=== PATIENT | female | born 1940 | race Asian ===

== ENCOUNTER 2018-09-28 14:37 | Inpatient (IN) | payer OTHER, MEDICAID ==
[~2018-09-28] VITALS: Ht 160 cm; Wt 74.4 kg
--- NOTE | 2018-09-28 14:37 | NUR ---
WILMAR UGALDE, CURRENTLY AWAITING BED
[2018-09-28 14:38] VITALS: BP 130/62
--- NOTE | 2018-09-28 14:47 | NUR ---
PT TAKEN TO BED 1 BY EMS CREW
[2018-09-28] MEDS ORDERED: NALO25TA PO (14:53)
[2018-09-28] MEDS ORDERED: TEMA15CA24 PO (14:53)
[2018-09-28] MEDS ORDERED: POTA10TE30 PO (14:53)
[2018-09-28] MEDS ORDERED: GABA400C PO (14:53)
[2018-09-28] MEDS ORDERED: CITA20TA15 PO (14:53)
[2018-09-28] MEDS ORDERED: LINA5TAB PO (14:53)
[2018-09-28] MEDS ORDERED: LORA10TA19 PO (14:53)
[2018-09-28] MEDS ORDERED: FURO-572 PO (14:53)
[2018-09-28] MEDS ORDERED: SPIR50TA PO (14:53)
[2018-09-28] MEDS ORDERED: ATEN50TA2 PO (14:53)
[2018-09-28] MEDS ORDERED: LACT1CAP92 PO (14:53)
[2018-09-28] MEDS ORDERED: ASCO500T93 PO (14:53)
[2018-09-28] MEDS ORDERED: LEVO0.0511 PO (14:53)
[2018-09-28] MEDS ORDERED: GLIM2TAB PO (14:53)
--- NOTE | 2018-09-28 14:55 | NUR ---
78 Y/O F BIBA W/C/O PER EMS FROM [facility] EXTENDED [facility] C/O GENERALIZED RASH AND PRURITUS >1 WK. SEEN BY DERM LAST WEEK BUT PT CONTINUES WITH RASH AND PRURITUS. DENIES N/V/D; AAOX4, PERRL; LUNGS CLEAR BL, BREATHING UNLABORED; HR EVEN AND REGULAR, BL PERIPHERAL PULSES PRESENT; PT STATES 0/10 PAIN AT THIS TIME; VSS; PATIENT POSITIONED FOR COMFORT; HOB ELEVATED; BEDRAILS UP X2; BED DOWN. HX--LIVER CA, HYPOTHYROID, DM, HTN, CHF, DEPRESSION RX---SEE LIST
--- NOTE | 2018-09-28 14:59 | NUR ---
DAUGHTER JAK CALLED AT THIS TIME PER PTS REQUEST.
[2018-09-28] MEDS ORDERED: cefTRIAXone 1,000 MG in DEXT 5% MINI-BAG PLUS 50 ML IV ONE (15:25)
[2018-09-28] MEDS ORDERED: NACL 0.9% 1,000 ML IV SCH (15:25)
--- NOTE | 2018-09-28 15:35 | NUR ---
PHLEB AT BEDSIDE.
[2018-09-28 15:55] LABS: BASOPHILS % (AUTO) 0.6 % (0.0-2.0); EOSINOPHILS # (AUTO) 0.1 K/uL (0-0.4); EOSINOPHILS % (AUTO) 2.4 % (0.0-4.0); HEMATOCRIT 31.2 % (36-48); HEMOGLOBIN 9.8 g/dL (12.0-16.0); LYMPHOCYTES # (AUTO) 0.8 K/uL (2.5-16.5); LYMPHOCYTES % (AUTO) 14.3 % (20.5-51.1); MEAN CORPUSCULAR HEMOGLOBIN 25 pg (27-31); MEAN CORPUSCULAR HGB CONC 31 g/dL (33-37); MONOCYTES # (AUTO) 0.5 K/uL (0.8-1.0); MONOCYTES % (AUTO) 9.3 % (1.7-9.3); NEUTROPHILS # (AUTO) 4.2 K/uL (1.8-7.7); NEUTROPHILS % (AUTO) 73.4 % (42.2-75.2); PLATELET COUNT (AUTO) 230 K/uL (140-450); RED BLOOD CELL COUNT(AUTO) 3.95 MIL/uL (4.20-5.40); RED CELL DISTRIBUTION WIDTH 17.9 % (11.6-13.7); WHITE BLOOD COUNT (AUTO) 5.6 K/uL (4.8-10.8)
[2018-09-28] MEDS ORDERED: cefTRIAXone 1,000 MG VIAL ONE ×2 (15:59→21:25)
[2018-09-28 16:04] LABS: ANION GAP 13.2 (8-16); CARBON DIOXIDE 28.1 mmol/L (21-32); CHLORIDE 97 mmol/L (98-107); CREATININE 1.3 mg/dL (0.6-1.3); GLUCOSE 154 mg/dL (74-106); POTASSIUM 5.3 mmol/L (3.5-5.1); SODIUM SERUM 133 mmol/L (136-145); UREA NITROGEN, BLOOD 22 mg/dL (7-18)
[2018-09-28 16:21] LABS: ALBUMIN 3.4 g/dL (3.4-5.0); ASPARTATE AMINOTRANSFERASE 55 U/L (15-37); TOTAL BILIRUBIN 0.5 mg/dL (0.0-1.0)
[2018-09-28] MEDS ORDERED: SODIUM POLYSTYRENE 15 GM/60 ML UDBTL PO ONE ×2 (17:15→17:45)
--- NOTE | 2018-09-28 17:30 | NUR ---
Lorraine lraa in ED - 09/28/18 at 1735 by MEDPJ CALLED PHARMACY FOR KAYEXALATE MEDICINE. PASCUAL SMITH MADE AWARE OF STATUS.
--- NOTE | 2018-09-28 17:30 | NUR ---
CALLED PHARMACY FOR KAYEXALATE MEDICINE. PHARMACY TO COME TO ER. ER MADE AWARE OF STATUS
--- NOTE | 2018-09-28 17:43 | NUR ---
PER PHARMACY THE ONLY KAYEXALATE THEY HAVE IS 15GM, DR. OLIVERA MADE AWARE STATED THAT [facility] OKAY TO GIVE.
[2018-09-28 17:51] LABS: APPEARANCE,URINE CLEAR (CLEAR); BILIRUBIN,URINE NEGATIVE (NEGATIVE); BLOOD, URINE NEGATIVE (NEGATIVE); COLOR,URINE YELLOW (YELLOW); LEUKOCYTE ESTERASE ,URINE TRACE (NEGATIVE); NITRITE, URINE NEGATIVE (NEGATIVE); UGLUCOSE NEGATIVE (NEGATIVE)
[2018-09-28] MEDS ORDERED: MORPHINE SULFATE 2 MG/ML SYR IVP PRN (17:55)
[2018-09-28] MEDS ORDERED: ONDANSETRON 4 MG/2 ML VIAL IM/IVP PRN (17:55)
[2018-09-28] MEDS ORDERED: DOCUSATE SODIUM 100 MG GELCAP PO PRN (17:55)
[2018-09-28] MEDS: NACL 0.9% 1,000 ML IV SCH (17:55)
[2018-09-28] MEDS ORDERED: ACETAMINOPHEN 325 MG TAB PO PRN (17:55)
--- NOTE | 2018-09-28 18:15 | NUR ---
PT TAKEN TO TELE FLOOR BY RN CHUN AND EMT JOE
--- NOTE | 2018-09-28 18:30 | NUR ---
Patient will be admitted to care of DR. GONZALEZ. Admited to TELE. Will go to room 112A. Belongings list completed. Report to TERRANCE LUCAS.
--- NOTE | 2018-09-28 18:30 | NUR ---
PATIENT ARRIVED FROM ER VIA GURNEY. TRANSPORTED SAFELY TO [facility] [[email or web address] BED. PATIENT IS STABLE. V/S STABLE. RASHES WITH SCABS NOTED THROUGHOUT BODY. IV SITE INTACT, PATENT, ON SALINE LOCK AT THIS TIME. DENIES ANY PAIN. ORIENTED PATIENT TO ROOM AND CALL LIGHT. SAFETY MEASURES IN PLACE, CALL LIGHT WITHIN REACH. WILL CONTINUE TO MONITOR.
[2018-09-28 19:28] LABS: CHOL/HDL RATIO 3.6 (1-4.5); MAGNESIUM 2.2 mg/dL (1.8-2.4); PHOSPHORUS 4.1 mg/dL (2.5-4.9); THYROID STIMULATING HORMONE 2.52 uIU/mL (0.34-3.74)
[2018-09-28 19:37] LABS: PROTHROMBIN TIME 10.8 secs (10.8-13.4)
--- NOTE | 2018-09-28 19:37 | NUR ---
GAVE REPORT TO PAINTING AND COATING WORKER NURSE FOR CONTINUITY OF CARE. PATIENT IN STABLE CONDITION.
--- NOTE | 2018-09-28 19:38 | NUR ---
RECEIVED BEDSIDE REPORT FROM DAY SHIFT RN. PT IS A&OX4. SPEAKS AMHARIC. UNDERSTANDS SOME ZAMBIAN. RASHES WITH SCABS NOTED THROUGHOUT BODY. IV SITE ON LEFT FA 24G INTACT, PATENT, IVF INFUSING PER ORDERS. DENIES ANY PAIN. ORIENTED PATIENT TO ROOM AND CALL LIGHT. SAFETY MEASURES IN PLACE, CALL LIGHT WITHIN REACH. WILL CONTINUE TO MONITOR.
[2018-09-28 20:00] VITALS: BP 123/49
[2018-09-28] MEDS ORDERED: DEXTROSE 50% 50 ML SYR IVP PRN (20:20)
[2018-09-28] MEDS: BLOOD GLUCOSE MONITORING 1 DEV DEV FS SCH (21:01)
[2018-09-28] MEDS: HYDROcodone/APAP 7.5/325 MG 1 TAB PO PRN (21:06)
[2018-09-28] MEDS ORDERED: CLINDAMYCIN 600 MG/4 ML VIAL ONE (21:25)
[2018-09-28] MEDS: CLINDAMYCIN 600 MG in DEXTROSE 5% 50 ML IV SCH (21:27)
--- NOTE | 2018-09-28 21:27 | NUR ---
VS ARE WITHIN NORMAL LIMITS. BLOOD SUGAR OF 140 NO COVERAGE NEEDED. CLINDAMYCIN INFUSING PER ORDERS. PICTURES TAKEN OF RASH. CALL LIGHT WITHIN REACH.
[2018-09-28] MEDS ORDERED: ATA25 PO (22:15)
[2018-09-28] MEDS ORDERED: MSCON30 PO (22:15)
[2018-09-28] MEDS ORDERED: CHOL100037 PO (22:15)
[2018-09-28] MEDS ORDERED: ACET-5636 PO (22:15)
[2018-09-28] MEDS: MORPHINE SULFATE 2 MG/ML SYR IVP PRN (22:22)
--- NOTE | 2018-09-28 22:23 | NUR ---
ROCEPHIN NOW INFUSING PER ORDERS. WILL CONTINUE TO MONITOR.
[2018-09-28 22:46] LABS: ANION GAP 13.4 (8-16); CARBON DIOXIDE 26.5 mmol/L (21-32); CHLORIDE 100 mmol/L (98-107); CREATININE 1.1 mg/dL (0.6-1.3); GLUCOSE 137 mg/dL (74-106); POTASSIUM 4.9 mmol/L (3.5-5.1); SODIUM SERUM 135 mmol/L (136-145); UREA NITROGEN, BLOOD 20 mg/dL (7-18)
[2018-09-29] VITALS: BP 95/51
--- NOTE | 2018-09-29 | NUR ---
VITAL SIGNS ARE WITHIN NORMAL LIMITS. ALL NEEDS MET AT THIS TIME. CALL LIGHT WITHIN REACH.
[2018-09-29] MEDS ORDERED: BISACODYL 10 MG SUPP RC PRN (01:25)
[2018-09-29] MEDS ORDERED: traZODone 50 MG TAB PO PRN (01:25)
[2018-09-29] MEDS ORDERED: MAGNESIUM HYDROXIDE 2400 MG/30 ML UDC PO PRN (01:25)
--- NOTE | 2018-09-29 02:50 | NUR ---
PT SLEEPING COMFORTABLY. NO S/S OF DISTRESS.
[2018-09-29 04:00] VITALS: BP 126/69
--- NOTE | 2018-09-29 04:00 | NUR ---
VITAL SIGNS ARE WITHIN NORMAL LIMITS. ALL NEEDS MET AT THIS TIME. WILL CONTINUE TO MONITOR.
[2018-09-29] MEDS ORDERED: CLINDAMYCIN 600 MG/4 ML VIAL ONE (04:35)
[2018-09-29] MEDS: CLINDAMYCIN 600 MG in DEXTROSE 5% 50 ML IV SCH (04:36)
--- NOTE | 2018-09-29 05:30 | NUR ---
BLOOD SUGAR OF 81. NO INSULIN NEEDED. PT WAS CLEANED AND TURNED FOR COMFORT. CALL LIGHT WITHIN REACH.
[2018-09-29] MEDS: BLOOD GLUCOSE MONITORING 1 DEV DEV FS SCH ×4 (05:46→21:55)
[2018-09-29 06:19] LABS: T4 (THYROXINE) 7.6 ug/dL (4.5-12.0)
--- NOTE | 2018-09-29 07:15 | NUR ---
ENDORSED TO DAY SHIFT RN. PT IS IN STABLE CONDITION.
--- NOTE | 2018-09-29 07:40 | NUR ---
PATIENT WAS AWAKE, ALERT. RESPIRATION EVEN, UNLABOR ON ROOM AIR. SKIN DRY AND WARM. IV PATENT AND INTACT. COMPLAINED OF LEFT LEG PAIN, WILL MEDICATE PER ORDER. PATIENT WAS ASSISTED TO BED MAZARIEGOS. PLAN OF CARE WAS DISCUSSED WITH PATIENT. BED AT LOW POSITION, SIDE RAILS UP. CALL LIGHT WITHIN REACH
[2018-09-29 08:00] VITALS: BP 148/80
--- NOTE | 2018-09-29 08:13 | NUR ---
PATIENT HAS BEEN SCREENED AND CATEGORIZED MODERATE NUTRITION RISK. PATIENT WILL BE SEEN WITHIN 3-5 DAYS OF ADMISSION. 10/01/18YEIMY [address] RD
[2018-09-29] MEDS: SODIUM FERRIC GLUCONATE 125 MG in NACL 0.9% 100 ML IV SCH (08:52)
[2018-09-29] MEDS: LACTOBACILLUS RHAMNOSUS GG 1 EACH CAP PO SCH (08:53)
[2018-09-29] MEDS: GABAPENTIN 100 MG CAP PO SCH ×2 (08:53→20:40)
[2018-09-29] MEDS: GLIMEPIRIDE 2 MG TAB PO SCH ×2 (08:54→20:39)
[2018-09-29] MEDS: FUROSEMIDE 20 MG TAB PO SCH (08:54)
[2018-09-29] MEDS: CITALOPRAM 20 MG TAB PO SCH (08:54)
[2018-09-29] MEDS: ASCORBIC ACID 500 MG TAB PO SCH ×2 (08:54→20:38)
[2018-09-29] MEDS: ATENOLOL 50 MG TAB PO SCH (08:54)
[2018-09-29] MEDS: LEVOTHYROXINE 0.05 MG TAB PO SCH (08:54)
[2018-09-29] MEDS: LORATADINE 10 MG TAB PO SCH (08:55)
[2018-09-29] MEDS: SPIRONOLACTONE 25 MG TAB PO SCH (08:55)
[2018-09-29] MEDS: MORPHINE SULFATE 2 MG/ML SYR IVP PRN ×2 (08:55→13:27)
[2018-09-29] MEDS ORDERED: NON-FORMULARY ITEM (Naloxegol Oxalate (Movantik) 25 MG) PO SCH (09:00)
[2018-09-29] MEDS ORDERED: NON-FORMULARY ITEM (Linagliptin (Tradjenta) 1 TAB) PO SCH (09:00)
[2018-09-29] MEDS ORDERED: VITAMIN D 400 IU TAB PO SCH (09:00)
--- NOTE | 2018-09-29 09:30 | NUR ---
PATIENT WAS AWAKE, ALERT. RESPIRATION EVEN, UNLABOR ON ROOM AIR. MEDS WERE GIVEN PER ORDERED. FAMILY WAS AT BEDSIDE. CALL LIGHT WITHIN REACH
[2018-09-29] MEDS: HYDROcodone/APAP 7.5/325 MG 1 TAB PO PRN ×2 (11:29→20:39)
--- NOTE | 2018-09-29 12:15 | NUR ---
PATIENT WAS AWAKE, ALERT. COMPLAINED OF LEG PAINS 6/10, MEDS WERE GIVEN PER ORDER. FAMILY WAS AT BEDSIDE. CALL LIGHT WITHIN REACH
[2018-09-29] MEDS ORDERED: CLINDAMYCIN PHOS 600MG/D5W PM 50 ML IV SCH (13:00)
--- NOTE | 2018-09-29 13:30 | NUR ---
PATIENT COMPLAINED OF LEG PAIN 10/10, MED WAS GIVEN PER ORDER. PATIENT WAS ASSISTED TO USE BED MAZARIEGOS. NO DISTRESS NOTED AT THIS TIME. CALL LIGHT WITHIN REACH
--- NOTE | 2018-09-29 13:37 | NUR ---
Software Engineer Developer Note: Per Kristi from [facility] , patient is on a 7 day bed hold and her daughter Debby Gil is her health care decision maker. Kristi stated patient does not have an existing Advance Directive. Per Kristi, patient was admitted at their facility on August 2018. I called and spoke with Debby Jeffery , she reported she would like patient to return to [facility] upon discharge.
--- NOTE | 2018-09-29 14:02 | NUR ---
PATIENT WAS ASSISTED TO SIT IN THE CHAIR. NO DISTRESS NOTED AT THIS TIME
[2018-09-29 16:00] VITALS: BP 127/64
--- NOTE | 2018-09-29 16:10 | NUR ---
PATIENT WAS AWAKE, ALERT. RESPIRATION EVEN, UNLABOR ON ROOM AIR. NO DISTRESS NOTED AT THIS TIME. CALL LIGHT WITHIN REACH
[2018-09-29] MEDS: diphenhydrAMINE 2% 30 GM TUBE TP SCH ×2 (17:00→17:08)
[2018-09-29] MEDS: HYDROmorphone 1 MG/ML AMP IVP PRN (17:08)
[2018-09-29] MEDS: INSULIN LISPRO SLIDING SCALE 100 UNITS/ML VIAL SUBQ PRN (17:18)
--- NOTE | 2018-09-29 17:30 | NUR ---
PATIENT COMPLAINED OF CONSTIPATION, MED WAS GIVEN PER ORDER
[2018-09-29] MEDS: NACL 0.9% 1,000 ML IV SCH (17:55)
--- NOTE | 2018-09-29 18:39 | NUR ---
PATIENT WAS RESTING COMFORTABLY. RESPIRATION EVEN, UNLABOR ON ROOM AIR. IV PATENT AND INTACT. NO DISTRESS NOTED AT THIS TIME
--- NOTE | 2018-09-29 19:35 | NUR ---
ENDORSEMENT GIVEN TO EVENT COORDINATOR MARKETING AND SALES NURSE. PATIENT IS STABLE AT THIS TIME
--- NOTE | 2018-09-29 19:36 | NUR ---
RECD. RESTING IN BED, AWAKE, A/OX4. RESPIRATION EVEN AN UNLABORED. IV OF NS AT 10 ML/HR INFUSING, RIGHT HAND G22. NOTED RASHES ON BILATERAL UPPER EXTREMITIES AND BACK AND REDNESS ON BILATERAL GROINS AND LOWER EXTREMITIES. PAIN IN THE THIGHS, 10/11. REPOSITIONED IN BED FOR COMFORT. WILL MEDICATE ORDERED. SAFETY MEASURES ENFORCED. DAUGHTER AT THE BEDSIDE. PLAN OF CARE FOR THE SHIFT DISCUSSED. VERBALIZED UNDERSTANDING.
--- NOTE | 2018-09-29 20:00 | NUR ---
Patient's Plan of Care was discussed and reviewed with COMMISSION SALES ASSOCIATE: ELZBIETA MOON
[2018-09-29] MEDS: hydrOXYzine HCL 25 MG TAB PO SCH (20:40)
--- NOTE | 2018-09-29 20:40 | NUR ---
DUE PO MEDICATIONS GIVEN, DAUGHTER AT THE BEDSIDE.
--- NOTE | 2018-09-29 21:00 | NUR ---
REFUSED SNACK FOR THE NIGHT, PREFERS FRUIT BROUGHT BY DAUGHTER.
--- NOTE | 2018-09-29 22:00 | NUR ---
ASSISTED TWICE TO GO TO BSC TO VOID, GAIT UNSTEADY. BACK TO BED AFTER VOIDING, SAFETY MAINTAINED.
--- NOTE | 2018-09-29 23:30 | NUR ---
SLEEPING COMFORTABLY IN BED.
[2018-09-30] VITALS: BP 134/64
--- NOTE | 2018-09-30 07:15 | NUR ---
JUST WOKE UP, ABLE TO SLEEP WELL. ENDORSED TO AM SHIFT NURSE FOR CONTINUITY OF CARE.
--- NOTE | 2018-09-30 07:25 | NUR ---
RECEIVED PT REPORT FROM SURGICAL NURSE PRACTITIONER NURSE. PT IS AWAKE AND ALERT IN BED, NO S/S OF ACUTE DISTRESS OR SOB. PT IS ON ROOM AIR. AREAS OF REDNESS AND RASH NOTED OVER PT'S BODY, ESPECIALLY CONCENTRATED ON BILATERAL THIGHS. IV SITE NOTED ON R HAND, 22 G, INFUSING NS 10 L/HR. FALL PRECAUTIONS IN PLACE, CALL LIGHT WITHIN REACH. WILL CONT TO MONITOR
[2018-09-30 07:27] LABS: BASOPHILS % (AUTO) 0.6 % (0.0-2.0); EOSINOPHILS # (AUTO) 0.1 K/uL (0-0.4); EOSINOPHILS % (AUTO) 1.6 % (0.0-4.0); HEMATOCRIT 30.7 % (36-48); HEMOGLOBIN 9.8 g/dL (12.0-16.0); LYMPHOCYTES # (AUTO) 0.9 K/uL (2.5-16.5); LYMPHOCYTES % (AUTO) 21.7 % (20.5-51.1); MEAN CORPUSCULAR HEMOGLOBIN 25 pg (27-31); MEAN CORPUSCULAR HGB CONC 32 g/dL (33-37); MEAN CORPUSCULAR VOLUME 78.9 fL (80-94); MONOCYTES # (AUTO) 0.5 K/uL (0.8-1.0); MONOCYTES % (AUTO) 10.9 % (1.7-9.3); NEUTROPHILS # (AUTO) 2.9 K/uL (1.8-7.7); NEUTROPHILS % (AUTO) 65.2 % (42.2-75.2); PLATELET COUNT (AUTO) 250 K/uL (140-450); RED BLOOD CELL COUNT(AUTO) 3.89 MIL/uL (4.20-5.40); RED CELL DISTRIBUTION WIDTH 18.5 % (11.6-13.7); WHITE BLOOD COUNT (AUTO) 4.4 K/uL (4.8-10.8)
[2018-09-30 07:40] LABS: ANION GAP 8.9 (8-16); CARBON DIOXIDE 28.6 mmol/L (21-32); CHLORIDE 106 mmol/L (98-107); CREATININE 0.9 mg/dL (0.6-1.3); GLUCOSE 90 mg/dL (74-106); POTASSIUM 4.5 mmol/L (3.5-5.1); SODIUM SERUM 139 mmol/L (136-145); UREA NITROGEN, BLOOD 12 mg/dL (7-18)
[2018-09-30 07:43] LABS: MAGNESIUM 2.2 mg/dL (1.8-2.4); PHOSPHORUS 3.3 mg/dL (2.5-4.9)
[2018-09-30] MEDS: BLOOD GLUCOSE MONITORING 1 DEV DEV FS SCH ×4 (07:46→20:43)
[2018-09-30 08:00] VITALS: BP 139/60
[2018-09-30] MEDS: SODIUM FERRIC GLUCONATE 125 MG in NACL 0.9% 100 ML IV SCH ×2 (08:00→10:38)
[2018-09-30] MEDS ORDERED: predniSONE 20 MG TAB PO SCH (09:00)
[2018-09-30] MEDS ORDERED: GABAPENTIN 300 MG CAP PO SCH (09:11)
[2018-09-30] MEDS ORDERED: traZODone 50 MG TAB PO PRN (10:13)
[2018-09-30] MEDS: ATENOLOL 50 MG TAB PO SCH (10:22)
[2018-09-30] MEDS: LEVOTHYROXINE 0.05 MG TAB PO SCH (10:22)
[2018-09-30] MEDS: ASCORBIC ACID 500 MG TAB PO SCH ×2 (10:22→20:48)
[2018-09-30] MEDS: SPIRONOLACTONE 25 MG TAB PO SCH (10:22)
[2018-09-30] MEDS: GLIMEPIRIDE 2 MG TAB PO SCH ×2 (10:23→20:49)
[2018-09-30] MEDS: LORATADINE 10 MG TAB PO SCH (10:23)
[2018-09-30] MEDS: CITALOPRAM 20 MG TAB PO SCH (10:23)
[2018-09-30] MEDS: LACTOBACILLUS RHAMNOSUS GG 1 EACH CAP PO SCH (10:23)
[2018-09-30] MEDS: FUROSEMIDE 20 MG TAB PO SCH (10:23)
[2018-09-30] MEDS: diphenhydrAMINE 2% 30 GM TUBE TP SCH ×3 (10:25→17:00)
[2018-09-30] MEDS: CHOLECALCIFEROL 1,000 IU TAB PO SCH (10:25)
[2018-09-30] MEDS: HYDROmorphone 1 MG/ML AMP IVP PRN ×3 (10:38→23:05)
--- NOTE | 2018-09-30 12:35 | NUR ---
HELPED PT TO THE BSC, PT URINATED AND HAD A LARGE BM
--- NOTE | 2018-09-30 13:16 | NUR ---
PT'S DAUGHTER VISITING AT BEDSIDE. NO S/S OF DISTRESS OR SOB NOTED. WILL CONT TO MONITOR
[2018-09-30] MEDS: INSULIN LISPRO SLIDING SCALE 100 UNITS/ML VIAL SUBQ PRN ×2 (13:35→20:55)
--- NOTE | 2018-09-30 14:26 | NUR ---
[place] [facility] .
[2018-09-30] MEDS ORDERED: KEN.1C TP (15:25)
[2018-09-30 16:00] VITALS: BP 126/54
[2018-09-30] MEDS: NACL 0.9% 1,000 ML IV SCH (17:55)
--- NOTE | 2018-09-30 19:30 | NUR ---
ENDORSED PT TO REHEATER IN STABLE CONDITION
--- NOTE | 2018-09-30 19:30 | NUR ---
ASSUMED CARE OF PATIENT, AWAKE, ALERT AND ORIENTED. NO COMPLAINS. CARE BOARD UPDATED. CALL LIGHT WITHIN REACH.
[2018-09-30 20:15] VITALS: BP 119/52
[2018-09-30] MEDS: HYDROcodone/APAP 7.5/325 MG 1 TAB PO PRN (20:49)
[2018-09-30] MEDS: PSYLLIUM 12.2 GM/PKT PO SCH (20:49)
[2018-09-30] MEDS: GABAPENTIN 300 MG CAP PO SCH (20:49)
[2018-09-30] MEDS: hydrOXYzine HCL 25 MG TAB PO SCH (20:49)
[2018-09-30] MEDS: TRIAMCINOLONE 0.1% CRM 15 GM TUBE TP SCH (20:50)
[2018-09-30] MEDS ORDERED: QUEtiapine FUMARATE 25 MG TAB PO SCH (21:00)
--- NOTE | 2018-09-30 21:00 | NUR ---
FAMILY AT BEDSIDE. PLAN OF CARE DISCUSSED WITH PATIENT AND FAMILY MEMBER AT BEDSIDE, VERBALIZED UNDERSTANDING WELL. CALL LIGHT WITHIN REACH. HS SNACK GIVEN BY DAUGHTER. DUE MEDS GIVEN.
--- NOTE | 2018-10-01 | NUR ---
VITAL SIGNS STABLE. NO COMPLAINS. AFEBRILE. CALL LIGHT WITHIN REACH.
[2018-10-01] MEDS: BLOOD GLUCOSE MONITORING 1 DEV DEV FS SCH ×2 (06:18→12:07)
[2018-10-01] MEDS ORDERED: BENC TP (07:00)
[2018-10-01] MEDS ORDERED: METPCK PO (07:00)
--- NOTE | 2018-10-01 07:09 | NUR ---
ENDORSED CARE AT BEDSIDE WITH WYATT RN, PATIENT IN STABLE CONDITION.
--- NOTE | 2018-10-01 07:30 | NUR ---
RECEIVED PT ON BED AAO, DANISH SPEAKING NO SOB NOTED. NO C/O PAIN AT THIS TIME. IV TO RT HAND PATENT AND INTACT. CHEST CLEAR. ABDOMEN SOFT, BOWEL SOUNDS PRESENT. NO EDEMA NOTED. RASHES TO BLE NOTED. INSTRUCTED PT TO CALL FOR ASSISTANCE, CALL LIGHT WITHIN REACH, PT VERBALIZED UNDERSTANDING.
[2018-10-01 08:00] VITALS: BP 116/67
[2018-10-01 08:09] LABS: BASOPHILS % (AUTO) 0.5 % (0.0-2.0); EOSINOPHILS % (AUTO) 0.1 % (0.0-4.0); HEMATOCRIT 28.5 % (36-48); LYMPHOCYTES # (AUTO) 1.2 K/uL (2.5-16.5); LYMPHOCYTES % (AUTO) 21.5 % (20.5-51.1); MEAN CORPUSCULAR HEMOGLOBIN 25 pg (27-31); MEAN CORPUSCULAR HGB CONC 32 g/dL (33-37); MEAN CORPUSCULAR VOLUME 78.7 fL (80-94); MONOCYTES # (AUTO) 0.5 K/uL (0.8-1.0); MONOCYTES % (AUTO) 9.8 % (1.7-9.3); NEUTROPHILS # (AUTO) 3.6 K/uL (1.8-7.7); NEUTROPHILS % (AUTO) 68.1 % (42.2-75.2); PLATELET COUNT (AUTO) 217 K/uL (140-450); RED BLOOD CELL COUNT(AUTO) 3.62 MIL/uL (4.20-5.40); RED CELL DISTRIBUTION WIDTH 18.2 % (11.6-13.7); WHITE BLOOD COUNT (AUTO) 5.3 K/uL (4.8-10.8)
[2018-10-01 08:21] LABS: ANION GAP 9.5 (8-16); CARBON DIOXIDE 28.5 mmol/L (21-32); CHLORIDE 103 mmol/L (98-107); GLUCOSE 55 mg/dL (74-106); SODIUM SERUM 137 mmol/L (136-145); UREA NITROGEN, BLOOD 15 mg/dL (7-18)
[2018-10-01 08:23] LABS: PHOSPHORUS 4.1 mg/dL (2.5-4.9)
[2018-10-01] MEDS ORDERED: CHOLECALCIFEROL 1,000 IU TAB PO SCH (09:00)
[2018-10-01] MEDS: GLIMEPIRIDE 2 MG TAB PO SCH (09:00)
--- NOTE | 2018-10-01 09:00 | NUR ---
PT CONSUMED 60 % OF BREAKFAST SERVED, FOOD TOLERATED WELL.
[2018-10-01] MEDS: PSYLLIUM 12.2 GM/PKT PO SCH (09:26)
[2018-10-01] MEDS: SODIUM FERRIC GLUCONATE 125 MG in NACL 0.9% 100 ML IV SCH ×2 (09:26→11:15)
[2018-10-01 09:27] LABS: FOLIC ACID 11.8 ng/mL (>3.0)
[2018-10-01] MEDS: LACTOBACILLUS RHAMNOSUS GG 1 EACH CAP PO SCH (09:32)
[2018-10-01] MEDS: GABAPENTIN 300 MG CAP PO SCH (09:32)
[2018-10-01] MEDS: ATENOLOL 50 MG TAB PO SCH (09:32)
[2018-10-01] MEDS: FUROSEMIDE 20 MG TAB PO SCH (09:33)
[2018-10-01] MEDS: CITALOPRAM 20 MG TAB PO SCH (09:33)
[2018-10-01] MEDS: LORATADINE 10 MG TAB PO SCH (09:33)
[2018-10-01] MEDS: diphenhydrAMINE 2% 30 GM TUBE TP SCH ×2 (09:33→14:37)
[2018-10-01] MEDS: LEVOTHYROXINE 0.05 MG TAB PO SCH (09:33)
[2018-10-01] MEDS: TRIAMCINOLONE 0.1% CRM 15 GM TUBE TP SCH (09:33)
[2018-10-01] MEDS: CHOLECALCIFEROL 1,000 IU TAB PO SCH (09:34)
[2018-10-01] MEDS: ASCORBIC ACID 500 MG TAB PO SCH (09:34)
[2018-10-01] MEDS: SPIRONOLACTONE 25 MG TAB PO SCH (09:35)
[2018-10-01] MEDS: HYDROmorphone 1 MG/ML AMP IVP PRN (12:08)
[2018-10-01] MEDS ORDERED: PNEUMOCOCCAL VACCINE 23 MCG/0.5 ML VIAL IMVAC SCH (12:50)
--- NOTE | 2018-10-01 13:07 | NUR ---
Called [facility] and spoke with Lester. Pt will be going to room 35 A after 1700. Informed Juju Gallardo RN and she will arrange for transportation.
--- NOTE | 2018-10-01 16:23 | NUR ---
REPORT GIVEN TO JESSICA [place] [facility] GOING [place] ROOM 35-A. SPOKE WITH PT'S DAUGHTER SANTOS ON THE [PHONE # [phone]), NOTIFIED THAT PT IS TO BE DISCHARGED [place] [facility] WILDLIFE REFUGE SPECIALIST TIME 1630 HRS, VERBALIZED UNDERSTANDING.
--- NOTE | 2018-10-01 16:40 | NUR ---
PT PICKED UP BY [facility] ([facility]) IN STABLE CONDITION. ARM BANDS AND IV REMOVED, CANNULA TIP INTACT. NO COMPLAINTS MADE. PT IS D/C BACK TO [facility].
== END 2018-10-01 16:40 | DRG 603 ==
LOC: MED 14:37 → MTU 17:55
PROVIDERS: ADMIT General Practice; ATTEND General Practice
DX: L03.90 Cellulitis, unspecified (principal); E87.1 Hypo-osmolality and hyponatremia; L12.0 Bullous pemphigoid; E87.5 Hyperkalemia; E78.00 Pure hypercholesterolemia, unspecified; F03.90 Unspecified dementia, unspecified severity, without behavioral disturbance, psychotic disturbance, mood disturbance, and anxiety; I11.0 Hypertensive heart disease with heart failure; M19.90 Unspecified osteoarthritis, unspecified site; E03.9 Hypothyroidism, unspecified; E78.5 Hyperlipidemia, unspecified; Z66 Do not resuscitate; D50.9 Iron deficiency anemia, unspecified; D63.8 Anemia in other chronic diseases classified elsewhere; E11.42 Type 2 diabetes mellitus with diabetic polyneuropathy; E11.65 Type 2 diabetes mellitus with hyperglycemia; K59.03 Drug induced constipation; T40.2X5A Adverse effect of other opioids, initial encounter; G89.4 Chronic pain syndrome; G47.00 Insomnia, unspecified; L98.9 Disorder of the skin and subcutaneous tissue, unspecified; Z85.05 Personal history of malignant neoplasm of liver; Z79.899 Other long term (current) drug therapy; Z79.84 Long term (current) use of oral hypoglycemic drugs; Z82.49 Family history of ischemic heart disease and other diseases of the circulatory system; Y92.89 Other specified places as the place of occurrence of the external cause; Z90.49 Acquired absence of other specified parts of digestive tract; I50.9 Heart failure, unspecified
CPT/HCPCS: 36415; 71045; 80048; 80053; 81003; 82550; 82607; 82728; 82746; 82948; 83036; 83540; 83605; 83735; 83880; 84100; 84436; 84443; 84479; 84484; 85025; 85045; 85610; 85730; 87040; 87070; 87075; 87081; 87086; 87186; 87205; 90732; 93005; 93970; 96365; 97110; 97116; 97530; 99285; J0696; J1170; J1644; J1815; J2270; J2916; J3490; J7030; J7060; J7512; Q0092

== ENCOUNTER 2018-11-01 18:04 | Inpatient (IN) | payer OTHER, MEDICAID ==
[~2018-11-01] VITALS: Ht 157.5 cm; Wt 70.3 kg
[2018-11-01 18:04] VITALS: BP 185/80
[~2018-11-01 18:04] MED LIST: ACET-5636 PO; ASCO500T93 PO; ATA25 PO; ATEN50TA2 PO; BENC TP; CHOL100037 PO; CITA20TA15 PO; FURO-572 PO; GABA400C PO; GLIM2TAB PO; KEN.1C TP; LACT1CAP92 PO; LEVO0.0511 PO; LINA5TAB PO; LORA10TA19 PO; METPCK PO; MSCON30 PO; NALO25TA PO; POTA10TE30 PO; SPIR50TA PO; TEMA15CA24 PO
--- NOTE | 2018-11-01 18:04 | NUR ---
PATIENT BIB BLS TO ER BED 8.
--- NOTE | 2018-11-01 18:05 | NUR ---
PT BIBA BLS TO BED 8
--- NOTE | 2018-11-01 18:05 | NUR ---
[place] [facility] PER EMS PATIENT WAS HAVING ABD PAIN X2HRS AND WAS GIVEN PERCOCET. BOWEL SOUNDS PRESENT. PATIENT AWAKE AND ALERT. PATIENT IS TELUGU SPEAKING ONLY. MULTIPLE SCABS NOTED TO UPPER CHEST AND BUE. PATIENT PLACED ON TELE MONITORING. FALL PRECAUTIONS IN PLACE. WILL CONTINUE TO MONITOR.
--- NOTE | 2018-11-01 18:20 | NUR ---
PATIENT EVALUATED BY DR MTAAMOROS
[2018-11-01] MEDS ORDERED: NACL 0.9% 1,000 ML IV SCH (18:36)
[2018-11-01] MEDS ORDERED: NACL 0.9% 1,000 ML IV ONE (18:36)
[2018-11-01] MEDS ORDERED: PROMETHAZINE 25 MG/ML VIAL IM ONE (18:40)
[2018-11-01] MEDS ORDERED: FAMOTIDINE 20 MG/2 ML VIAL IVP ONE (18:40)
[2018-11-01] MEDS ORDERED: ONDANSETRON 4 MG/2 ML VIAL IVP ONE (18:40)
[2018-11-01] MEDS ORDERED: METOCLOPRAMIDE 10 MG/2 ML INJ VIAL IVP ONE (18:40)
--- NOTE | 2018-11-01 18:54 | NUR ---
XRAY AT BEDSIDE
--- NOTE | 2018-11-01 19:13 | NUR ---
ASSUMED CARE OF PT FROM LANCE BILL
[2018-11-01 19:14] LABS: HEMATOCRIT 33.1 % (36-48); HEMOGLOBIN 10.5 g/dL (12.0-16.0); MEAN CORPUSCULAR HEMOGLOBIN 25 pg (27-31); MEAN CORPUSCULAR HGB CONC 32 g/dL (33-37); MEAN CORPUSCULAR VOLUME 79.4 fL (80-94); PLATELET COUNT (AUTO) 229 K/uL (140-450); RED BLOOD CELL COUNT(AUTO) 4.17 MIL/uL (4.20-5.40); WHITE BLOOD COUNT (AUTO) 12.6 K/uL (4.8-10.8)
--- NOTE | 2018-11-01 19:14 | NUR ---
URINE COLLECTED AND TAKEN BY LAB
[2018-11-01 19:21] LABS: APPEARANCE,URINE CLEAR (CLEAR); BILIRUBIN,URINE NEGATIVE (NEGATIVE); BLOOD, URINE NEGATIVE (NEGATIVE); COLOR,URINE YELLOW (YELLOW); LEUKOCYTE ESTERASE ,URINE NEGATIVE (NEGATIVE); NITRITE, URINE NEGATIVE (NEGATIVE); UGLUCOSE 2+ (NEGATIVE)
[2018-11-01 19:29] LABS: ALBUMIN 3.3 g/dL (3.4-5.0); AMYLASE 22 U/L (25-115); ANION GAP 20.1 (8-16); ASPARTATE AMINOTRANSFERASE 85 U/L (15-37); CHLORIDE 98 mmol/L (98-107); CREATININE 1.1 mg/dL (0.6-1.3); GLUCOSE 211 mg/dL (74-106); LIPASE 154 U/L (73-393); POTASSIUM 4.1 mmol/L (3.5-5.1); SODIUM SERUM 134 mmol/L (136-145); TOTAL BILIRUBIN 1.5 mg/dL (0.0-1.0); UREA NITROGEN, BLOOD 17 mg/dL (7-18)
[2018-11-01 19:45] LABS: LYMPHOCYTES % (MANUAL) 3 % (20-46); MONOCYTES % (MANUAL) 4 % (5-12)
[2018-11-01] MEDS ORDERED: MORPHINE SULFATE 4 MG/ML SYR IVP ONE (19:55)
--- NOTE | 2018-11-01 19:55 | NUR ---
PT C/O PAIN. ER AWARE. NEW ORDERS IN OCT.
--- NOTE | 2018-11-01 20:04 | NUR ---
US AT BEDSIDE
--- NOTE | 2018-11-01 20:40 | NUR ---
PT SLEEPING. DAUGHTER AT BEDSIDE. ALL QUESTIONS ANSWERED. NO NEW COMPLAINTS AT THIS TIME.
[2018-11-01] MEDS ORDERED: DOCUSATE SODIUM 100 MG GELCAP PO PRN (22:20)
[2018-11-01] MEDS ORDERED: HYDROcodone/APAP 5/325 MG 1 TAB TAB PO PRN (22:20)
[2018-11-01] MEDS ORDERED: ACETAMINOPHEN 325 MG TAB PO PRN (22:20)
[2018-11-01] MEDS ORDERED: MORPHINE SULFATE 2 MG/ML SYR IVP PRN (22:20)
--- NOTE | 2018-11-01 22:27 | NUR ---
VSS. RESTING IN BED AT THIS TIME, NO NEW CONCERNS OR QUESTIONS. DAUGHTER AT BEDSIDE.
[2018-11-01 22:44] LABS: MAGNESIUM 1.7 mg/dL (1.8-2.4); PHOSPHORUS 2.9 mg/dL (2.5-4.9)
[2018-11-01 22:47] LABS: PROTHROMBIN TIME 12.5 secs (10.8-13.4)
--- NOTE | 2018-11-01 22:47 | NUR ---
Patient will be admitted to care of DR GONZALEZ. Admited to TELE. Will go to room 120-A. Belongings list completed. Report to LANCE HANKINS.
--- NOTE | 2018-11-01 22:50 | NUR ---
RECEIVED REPORT FROM RESIDENTIAL HOUSEKEEPER BRADEN FOR CONTINUITY OF CARE. PT SPEAKS ICELANDIC AND IS CONFUSED. ON ROOM AIR. PT IS A FALL RISK, FALL PRECAUTIONS IN PLACE. ABLE TO FOLLOW COMMANDS, AND ABLE TO MAKE NEEDS KNOWN. MULTIPLE SCABS SEEN THROUGHOUT BODY. PT HAS A 18G IV TO LEFT AC, ASYMPTOMATIC AND INTACT. VITAL SIGNS WITHIN NORMAL LIMITS. PT STABLE, DENIES PAIN AT THIS TIME, NO SIGNS OF DISTRESS NOTED AT THIS TIME. PT POSITIONED FOR COMFORT. BED IN LOWEST POSITION, BED ALARM ON. WILL CONTINUE TO MONITOR.
[2018-11-01] MEDS ORDERED: metroNIDAZOLE 500 MG/NS PREMIX 100 ML IV SCH (23:00)
[2018-11-02] VITALS: BP 148/56
--- NOTE | 2018-11-02 | NUR ---
VITAL SIGNS WITHIN NORMAL LIMITS. PT STABLE, DENIES PAIN AT THIS TIME, NO SIGNS OF DISTRESS NOTED AT THIS TIME. PT POSITIONED FOR COMFORT. BED IN LOWEST POSITION, BED ALARM ON. WILL CONTINUE TO MONITOR.
[2018-11-02] MEDS ORDERED: MORPHINE SULFATE 2 MG/ML SYR IVP PRN (01:45)
[2018-11-02] MEDS ORDERED: MAGNESIUM HYDROXIDE 2400 MG/30 ML UDC PO PRN (01:50)
[2018-11-02] MEDS ORDERED: BISACODYL 10 MG SUPP RC PRN (01:50)
[2018-11-02] MEDS ORDERED: SODIUM PHOSPHATE 118 ML ENEM RC PRN (01:50)
--- NOTE | 2018-11-02 02:00 | NUR ---
ADMINISTERED MORPHINE FOR PAIN MEDICATION ORDERED FOR PAIN 05/11. PT TOLERATED WELL.
[2018-11-02] MEDS ORDERED: DEXTROSE 50% 50 ML SYR IVP PRN (02:45)
[2018-11-02] MEDS ORDERED: traZODone 50 MG TAB PO PRN (03:15)
[2018-11-02] MEDS: DEXT 5% /NACL 0.9% 1,000 ML IV SCH (03:40)
[2018-11-02 04:00] VITALS: BP 159/70
[2018-11-02] MEDS ORDERED: MAG SULF 2000 MG/WATER PREMIX 50 ML IV SCH (04:00)
--- NOTE | 2018-11-02 04:41 | NUR ---
ADMINISTERED TYLENOL FOR FEVER, PT TOLERATED WELL. WILL REASSESS.
[2018-11-02] MEDS: LEVOTHYROXINE 0.05 MG TAB PO SCH (05:40)
[2018-11-02] MEDS: BLOOD GLUCOSE MONITORING 1 DEV DEV FS SCH ×4 (05:58→20:21)
--- NOTE | 2018-11-02 06:06 | NUR ---
PT KEEPS PULLING ON TELE MONITOR AND TAKING IT OFF. HELPED PUT IT BACK ON AND EXPLAIN TO PT THAT SHE NEEDS TO LEAVE IT ON TO MONITOR HER HEART.
[2018-11-02 06:30] LABS: BASOPHILS % (AUTO) 0.1 % (0.0-2.0); HEMATOCRIT 32.8 % (36-48); HEMOGLOBIN 10.5 g/dL (12.0-16.0); LYMPHOCYTES # (AUTO) 0.8 K/uL (2.5-16.5); LYMPHOCYTES % (AUTO) 4.7 % (20.5-51.1); MEAN CORPUSCULAR HEMOGLOBIN 25 pg (27-31); MEAN CORPUSCULAR HGB CONC 32 g/dL (33-37); MONOCYTES # (AUTO) 0.9 K/uL (0.8-1.0); MONOCYTES % (AUTO) 5.7 % (1.7-9.3); NEUTROPHILS # (AUTO) 14.6 K/uL (1.8-7.7); NEUTROPHILS % (AUTO) 89.5 % (42.2-75.2); PLATELET COUNT (AUTO) 201 K/uL (140-450); RED BLOOD CELL COUNT(AUTO) 4.16 MIL/uL (4.20-5.40); RED CELL DISTRIBUTION WIDTH 20.9 % (11.6-13.7); WHITE BLOOD COUNT (AUTO) 16.4 K/uL (4.8-10.8)
--- NOTE | 2018-11-02 07:30 | NUR ---
RECEIVED PT AAOX2, SAMI SPEAKING, NO SOB NOTED. NO C/O PAIN AT THIS TIME. IV TO LT AC PATENT AND INTACT. CHEST, DIMINISHED AIR ENTRY TO THE BASES OTHERWISE CLEAR. ABDOMEN SOFT, BOWEL SOUNDS PRESENT. INSTRUCTED PT TO CALL FOR ASSISTANCE, CALL LIGHT WITHIN REACH, BED ALARM ON, BED ON LOWEST POSITION WITH 3 SIDE RAILS RAISED UP. BEDSIDE COMMODE PROVIDED. PT VERBALIZED PARTIAL UNDERSTANDING.
[2018-11-02] MEDS ORDERED: VANCOMYCIN PER PHARMACY MC PRN (07:35)
--- NOTE | 2018-11-02 07:38 | NUR ---
ENDORSED PT TO DAY SHIFT RN OBDULIO FOR CONTINUITY OF CARE. PT IN STABLE CONDITION.
[2018-11-02 07:58] LABS: MAGNESIUM 1.4 mg/dL (1.8-2.4); PHOSPHORUS 2.6 mg/dL (2.5-4.9)
[2018-11-02 08:00] VITALS: BP 131/66
[2018-11-02] MEDS: GLIMEPIRIDE 2 MG TAB PO SCH ×2 (08:00→18:22)
[2018-11-02 08:03] LABS: ANION GAP 15.7 (8-16); CARBON DIOXIDE 23.8 mmol/L (21-32); CHLORIDE 101 mmol/L (98-107); CREATININE 1.1 mg/dL (0.6-1.3); GLUCOSE 82 mg/dL (74-106); POTASSIUM 3.5 mmol/L (3.5-5.1); SODIUM SERUM 137 mmol/L (136-145); UREA NITROGEN, BLOOD 17 mg/dL (7-18)
--- NOTE | 2018-11-02 08:47 | NUR ---
PATIENT HAS BEEN SCREENED AND CATEGORIZED MODERATE NUTRITION RISK. PATIENT WILL BE SEEN WITHIN 3-5 DAYS OF ADMISSION. 11/04/18YEIMY [address]
[2018-11-02] MEDS ORDERED: ATENOLOL 50 MG TAB PO SCH (09:00)
[2018-11-02] MEDS ORDERED: VANCOMYCIN 750 MG in DEXTROSE 5% 250 ML IV SCH (09:00)
[2018-11-02] MEDS ORDERED: PANTOPRAZOLE 40 MG INJ VIAL IVP SCH (09:00)
[2018-11-02] MEDS ORDERED: diphenhydrAMINE 2% 30 GM TUBE TP SCH (09:00)
--- NOTE | 2018-11-02 09:15 | NUR ---
PRESENT IV LEAKING, WILL RESTART A NEW LINE SOON POSSIBLE.
[2018-11-02] MEDS: GABAPENTIN 100 MG CAP PO SCH ×2 (10:24→20:10)
[2018-11-02] MEDS: CITALOPRAM 20 MG TAB PO SCH (10:25)
[2018-11-02] MEDS: LACTOBACILLUS RHAMNOSUS GG 1 EACH CAP PO SCH (10:25)
[2018-11-02] MEDS: VITAMIN D 400 IU TAB PO SCH (10:25)
[2018-11-02] MEDS: DOCUSATE SODIUM 100 MG GELCAP PO SCH ×2 (10:26→20:10)
[2018-11-02] MEDS: predniSONE 20 MG TAB PO SCH (10:26)
[2018-11-02] MEDS: SPIRONOLACTONE 50 MG TAB PO SCH (10:26)
[2018-11-02] MEDS: PSYLLIUM 12.2 GM/PKT PO SCH ×2 (10:27→20:09)
[2018-11-02] MEDS: ASCORBIC ACID 500 MG TAB PO SCH ×2 (10:27→20:09)
[2018-11-02] MEDS: LORATADINE 10 MG TAB PO SCH (10:27)
[2018-11-02] MEDS: ATENOLOL 50 MG TAB PO SCH ×2 (10:27→20:10)
[2018-11-02] MEDS ORDERED: MAGNESIUM OXIDE 400 MG TAB PO SCH (11:00)
[2018-11-02] MEDS: ONDANSETRON 4 MG/2 ML VIAL IM/IVP PRN ×2 (11:57→18:22)
[2018-11-02 12:00] VITALS: BP 144/64
[2018-11-02] MEDS ORDERED: LORazepam 2 MG/ML VIAL IM/IVP PRN (12:00)
[2018-11-02] MEDS: HYDROmorphone 1 MG/ML AMP IVP SCH ×3 (12:00→20:08)
[2018-11-02] MEDS ORDERED: metroNIDAZOLE 500 MG/NS PREMIX 100 ML IV SCH (13:00)
--- NOTE | 2018-11-02 13:35 | NUR ---
[place] [facility] [place] INFORMATION REGARDING PT'S SKIN BIOPSY RESULT(DERMATOLOGY) AND MEDS RECONCILIATION. CONFIRMATION PLACED IN PT'S CHART.
[2018-11-02] MEDS: metroNIDAZOLE 500 MG/NS PREMIX 100 ML IV SCH ×2 (14:11→20:12)
[2018-11-02 16:00] VITALS: BP 131/66
[2018-11-02] MEDS: INSULIN LISPRO SLIDING SCALE 100 UNITS/ML VIAL SUBQ PRN ×2 (18:21→20:24)
--- NOTE | 2018-11-02 19:15 | NUR ---
PT ASLEEP. NPO MAINTAINED. NO SOB NOTED. NO SIGNS OF PAIN. WILL ENDORSE TO NEXT SHIFT NURSE FOR CONTINUITY OF CARE.
--- NOTE | 2018-11-02 19:16 | NUR ---
RECEIVED BEDSIDE REPORT FROM DAY SHIFT NURSE OBDULIO RN, PT STABLE, NO DISTRESS NOTED, IV TO L HAND 22G, PATENT, INTACT, INFUSING D 5NS @ 30ML/HR, INFUSING WELL, PT ON ROOM AIR, NO SOB NOTED, PT SLEEPING, INITIAL ASSESSMENT DONE, ALL SAFETY PRECAUTION MET, CALL LIGHT WITHIN REACH, WILL CONTINUE TO MONITOR.
[2018-11-02 20:00] VITALS: BP 139/61
--- NOTE | 2018-11-02 20:22 | NUR ---
DUE MEDICATION ADMINISTERED, PT TOLERATED WELL, NO DISTRESS NOTED, PT REFUSING METAMUCIL AFTER A FEW SIP OF MEDICATION. CALL LIGHT WITHIN REACH, WILL CONTINUE TO MONITOR.
[2018-11-03] VITALS: BP 136/64
[2018-11-03] MEDS: HYDROmorphone 1 MG/ML AMP IVP SCH ×5 (00:01→16:35)
--- NOTE | 2018-11-03 00:01 | NUR ---
CHECKED ON PT, V/S TAKEN, WNL, DUE MEDICATION ADMINISTERED, PT TOLERATED WELL, CALL LIGHT WITHIN REACH, WILL CONTINUE TO MONITOR.
[2018-11-03] MEDS: DEXT 5% /NACL 0.9% 1,000 ML IV SCH (02:40)
[2018-11-03 04:00] VITALS: BP 105/58
--- NOTE | 2018-11-03 04:08 | NUR ---
CHECKED ON PT, V/S TAKEN, WNL, DUE MEDICATION ADMINISTERED, CALL LIGHT WITHIN REACH, WILL CONTINUE TO MONITOR.
[2018-11-03] MEDS: metroNIDAZOLE 500 MG/NS PREMIX 100 ML IV SCH ×2 (04:09→14:01)
[2018-11-03] MEDS: LEVOTHYROXINE 0.05 MG TAB PO SCH (05:41)
--- NOTE | 2018-11-03 05:46 | NUR ---
CHECKED PT BLOOD SUGAR, 67, NOTIFIED DR. CROWDER REGARDING PT BLOOD SUGAR AND PT NPO STATUS, PER DR. CROWDER OK TO GIVE D 50, MEDICATION ADMINISTERED, PT TOLERATED WELL, WILL RECHECK BLOOD SUGAR IN 15 MINUTES
[2018-11-03] MEDS: BLOOD GLUCOSE MONITORING 1 DEV DEV FS SCH ×3 (06:08→16:43)
--- NOTE | 2018-11-03 06:08 | NUR ---
RECHECKED PT BLOOD SUGAR 186, PT SLEEPING, NO DISTRESS NOTED, CALL LIGHT WITHIN REACH, WILL CONTINUE TO MONITOR.
[2018-11-03 06:30] LABS: BASOPHILS % (AUTO) 0.1 % (0.0-2.0); EOSINOPHILS % (AUTO) 0.2 % (0.0-4.0); HEMATOCRIT 31.9 % (36-48); HEMOGLOBIN 9.9 g/dL (12.0-16.0); MEAN CORPUSCULAR HEMOGLOBIN 25 pg (27-31); MEAN CORPUSCULAR HGB CONC 31 g/dL (33-37); MEAN CORPUSCULAR VOLUME 80.2 fL (80-94); MONOCYTES # (AUTO) 1.2 K/uL (0.8-1.0); NEUTROPHILS # (AUTO) 9.3 K/uL (1.8-7.7); NEUTROPHILS % (AUTO) 80.7 % (42.2-75.2); PLATELET COUNT (AUTO) 186 K/uL (140-450); RED BLOOD CELL COUNT(AUTO) 3.98 MIL/uL (4.20-5.40); RED CELL DISTRIBUTION WIDTH 21.1 % (11.6-13.7); WHITE BLOOD COUNT (AUTO) 11.5 K/uL (4.8-10.8)
[2018-11-03 06:51] LABS: ANION GAP 11.4 (8-16); CARBON DIOXIDE 27.5 mmol/L (21-32); CHLORIDE 104 mmol/L (98-107); CREATININE 0.9 mg/dL (0.6-1.3); GLUCOSE 77 mg/dL (74-106); POTASSIUM 3.9 mmol/L (3.5-5.1); SODIUM SERUM 139 mmol/L (136-145); UREA NITROGEN, BLOOD 21 mg/dL (7-18)
--- NOTE | 2018-11-03 07:19 | NUR ---
ENDORSED PT TO DAY SHIFT NURSE EFRA RN, FOR CONTINUOUS OF CARE. PT STABLE, NO DISTRESS NOTED, CALL LIGHT WITHIN REACH.
--- NOTE | 2018-11-03 07:20 | NUR ---
Received report from pm nurse Keiry. Pt asleep in bed, respirations even & nonlabored, FLACC 0. Call light within reach. Bed alarm on.
[2018-11-03 08:00] VITALS: BP 127/65
[2018-11-03] MEDS: GLIMEPIRIDE 2 MG TAB PO SCH (08:00)
[2018-11-03] MEDS: PSYLLIUM 12.2 GM/PKT PO SCH (08:47)
[2018-11-03] MEDS: LACTOBACILLUS RHAMNOSUS GG 1 EACH CAP PO SCH (08:47)
[2018-11-03] MEDS: VITAMIN D 400 IU TAB PO SCH (08:47)
[2018-11-03] MEDS: ASCORBIC ACID 500 MG TAB PO SCH (08:48)
[2018-11-03] MEDS: LORATADINE 10 MG TAB PO SCH (08:48)
[2018-11-03] MEDS: DOCUSATE SODIUM 100 MG GELCAP PO SCH (08:48)
[2018-11-03] MEDS: GABAPENTIN 100 MG CAP PO SCH (08:48)
[2018-11-03] MEDS: predniSONE 20 MG TAB PO SCH (08:48)
[2018-11-03] MEDS: SPIRONOLACTONE 50 MG TAB PO SCH (08:49)
[2018-11-03] MEDS: CITALOPRAM 20 MG TAB PO SCH (08:49)
[2018-11-03] MEDS ORDERED: CARV3.12 PO (11:12)
[2018-11-03] MEDS ORDERED: METR250T2 PO (11:12)
[2018-11-03] MEDS ORDERED: LACT1CAP92 PO (11:12)
[2018-11-03] MEDS ORDERED: METO-485 PO (11:21)
[2018-11-03] MEDS ORDERED: oxyCODONE 10 MG TABER PO PRN (14:00)
--- NOTE | 2018-11-03 14:15 | NUR ---
CM NOTE RECEIVED ORDER TO DISCHARGE TO [facility] [place] [place] TODAY. PER ROSETTE OF [facility] PH# [phone], THE PATIENT'S HEALTH CARE DECISION MAKER IS PATIENT'S DAUGHTER JAK BURKS PH# [phone]. I CALLED AND SPOKE WITH JAK BURKS WHO STATED THAT SHE WOULD LIKE PATIENT TO RETURN TO [facility] UPON DISCHARGE. I FAXED UPDATED CLINICAL PACKET INCLUDING DISCHARGE SUMMARY TO [facility] [place] [place], ATTN: ROSETTE. PER ROSETTE JO [facility] [place] [place], THE PATIENT CAN GO TO RM 35 A, ACCEPTING IS DR. BURKS. I SPOKE WITH BRANDY OF [facility] [employer] PH# [phone], TO SET UP PATIENT'S TRANSPORT GOING TO [facility] [place], CONFIRMATION# [id number]. PER HEIDY OF [facility] PH# [phone], THE PATIENT WILL BE PICKED UP AT 3:30 PM TODAY GOING TO [facility] [place]. EFRA LUCAS AWARE.
[2018-11-03] MEDS ORDERED: PIPE50SO5 IV (15:41)
[2018-11-03 16:00] VITALS: BP 120/55
--- NOTE | 2018-11-03 16:00 | NUR ---
Spoke to daughter Leidy on the phone. Notified of discharge back to [facility] [place] to cont IV atb. Verbalized understanding & agree with plan of care.
[2018-11-03] MEDS ORDERED: VANCOMYCIN PER PHARMACY MC PRN (16:10)
[2018-11-03] MEDS ORDERED: VANC750F IV (16:13)
[2018-11-03] MEDS ORDERED: CEFT1SOL1 IV (16:28)
[2018-11-03] MEDS ORDERED: VANCOMYCIN 1GM/DEXT 5% PREMIX 200 ML IV SCH (16:30)
--- NOTE | 2018-11-03 16:30 | NUR ---
Telephone report given to LAKE Mullen @ [facility] [place].
--- NOTE | 2018-11-03 17:01 | NUR ---
Logging Rafter Laborer Note: Per Bjorn from [facility] , patient's insurance will cover Vancomycin 750 mg IV daily, Rocephin 1000 mg IV daily, and Metronidazole 500 mg PO TID as indicated on MD's order.
--- NOTE | 2018-11-03 18:10 | NUR ---
Pt discharged at this time to [facility] via gurney, accompanied by 2 MTs from [facility]. Pt awake, no signs of distress, no c/o discomfort. All belongings with pt upon departure. Left ac IV saline locked, intact & asymptomatic.
== END 2018-11-03 18:10 | DRG 392 ==
LOC: MED 18:04 → MTU 22:19
PROVIDERS: ADMIT General Practice; ATTEND General Practice
DX: K52.9 Noninfective gastroenteritis and colitis, unspecified (principal); L12.0 Bullous pemphigoid; E44.1 Mild protein-calorie malnutrition; E87.1 Hypo-osmolality and hyponatremia; R18.8 Other ascites; I50.42 Chronic combined systolic (congestive) and diastolic (congestive) heart failure; Z68.28 Body mass index [BMI] 28.0-28.9, adult; E03.9 Hypothyroidism, unspecified; E78.00 Pure hypercholesterolemia, unspecified; F03.90 Unspecified dementia, unspecified severity, without behavioral disturbance, psychotic disturbance, mood disturbance, and anxiety; F32.9 Major depressive disorder, single episode, unspecified; I11.0 Hypertensive heart disease with heart failure; M19.90 Unspecified osteoarthritis, unspecified site; E78.5 Hyperlipidemia, unspecified; Z66 Do not resuscitate; D63.8 Anemia in other chronic diseases classified elsewhere; I70.0 Atherosclerosis of aorta; E11.42 Type 2 diabetes mellitus with diabetic polyneuropathy; K59.03 Drug induced constipation; T40.2X5A Adverse effect of other opioids, initial encounter; E83.42 Hypomagnesemia; G89.4 Chronic pain syndrome; G47.00 Insomnia, unspecified; Z85.05 Personal history of malignant neoplasm of liver; Z90.49 Acquired absence of other specified parts of digestive tract; Z98.42 Cataract extraction status, left eye; Z98.41 Cataract extraction status, right eye; Z82.49 Family history of ischemic heart disease and other diseases of the circulatory system; Y92.89 Other specified places as the place of occurrence of the external cause; Z79.84 Long term (current) use of oral hypoglycemic drugs
CPT/HCPCS: 36415; 71045; 76705; 80048; 80053; 81003; 82150; 82948; 83605; 83690; 83735; 83880; 84100; 84484; 85025; 85610; 85730; 87040; 87081; 87086; 87186; 96361; 96372; 96374; 96375; 99285; C9113; J0696; J1170; J1644; J1815; J2270; J2405; J2550; J2765; J3370; J3475; J3490; J7042; J7060; J7512; Q0092